=== PATIENT | male | born 1950 | race Caucasian/White ===

== ENCOUNTER 2022-10-21 09:56 | Inpatient (IN) | payer MEDICARE ==
[2022-10-21] MEDS ORDERED: KETOROLAC 15 MG/ML 1 ML VIAL IVP STA (10:13)
[2022-10-21] MEDS ORDERED: FAMOTIDINE 20 MG/2 ML VIAL IV STA (10:13)
--- NOTE | 2022-10-21 10:27 | ED ---
Abdominal Pain HPI - General Chief Complaint: Abdominal Pain Stated Complaint: abd pain Time Seen by Provider: 10/21/22 10:07 Source: patient, RN notes reviewed Mode of arrival: ambulatory Limitations: no limitations - History of Present Illness Initial Comments: This is a 71-year-old male who presents to the emergency department for abdominal pain. States that this the upper abdomen and started about 3 days ago. He has associated nausea and vomiting. States that this has happened to him in the past, however it usually resolves on its own within 1-2 days. However, this pain has since persisted. Additionally, this is the first time that the pain has radiated down to his umbilicus and into the back. Denies any diarrhea or constipation. Denies any known history of gallbladder problems. Unsure if this is related to anything that he ate. Denies any fevers, chills, sore throat, cough, dyspnea, chest pain, palpitations, diarrhea, or headaches. MD Complaint: abdominal pain Onset/Timin -: days(s) Location: epigastric - Related Data Home Medications Medication Instructions Recorded Confirmed Aspirin EC [Ecotrin Low Dose] 81 mg PO DAILY 10/21/22 10/21/22 Atorvastatin [Lipitor] 20 mg PO DAILY 10/21/22 10/21/22 Losartan [Cozaar] 50 mg PO DAILY 10/21/22 10/21/22 Omeprazole 20 mg PO DAILY 10/21/22 10/21/22 hydroCHLOROthiazide [Hydrodiuril] 12.5 mg PO DAILY 10/21/22 10/21/22 Allergies Allergy/AdvReac Type Severity Reaction Status Date / Time amoxicillin Allergy Rash/Hives Verified 10/21/22 13:09 Review of Systems ROS Statement: Those systems with pertinent positive or pertinent negative responses have been documented in the HPI. ROS Other: All systems not noted in ROS Statement are negative. Past Medical History Past Medical History: GERD/Reflux, Hyperlipidemia, Hypertension History of Any Multi-Drug Resistant Organisms: None Reported Past Surgical History: No Surgical Hx Reported Past Psychological History: No Psychological Hx Reported Smoking Status: Never smoker Past Alcohol Use History: Heavy General Exam Limitations: no limitations General appearance: alert, in no apparent distress Head exam: Present: atraumatic, normocephalic, normal inspection Respiratory exam: Present: normal lung sounds bilaterally. Absent: respiratory distress, wheezes, rales, rhonchi, stridor Cardiovascular Exam: Present: regular rate, normal rhythm, normal heart sounds. Absent: systolic murmur, diastolic murmur, rubs, gallop, clicks GI/Abdominal exam: Present: soft, tenderness (epigastric), normal bowel sounds. Absent: distended Neurological exam: Present: alert, oriented X3, CN II-XII intact Psychiatric exam: Present: normal affect, normal mood Skin exam: Present: warm, dry, intact, normal color. Absent: rash Course Vital Signs 10/21/22 09:57 Temperature 98.2 F Pulse Rate 57 L Respiratory 18 Rate Blood Pressure 162/93 O2 Sat by Pulse 98 Oximetry Medical Decision Making - Medical Decision Making This is a 71-year-old male who presents to the emergency department for abdominal pain. Was pt. sent in by a medical professional or institution? @ -No Did you speak to anyone other than the patient for history? @ -No Did you review nursing and triage notes? @ -Yes, and I agree, it is accurate with regards to the patient's symptoms. Were old charts reviewed? @ -No Differential Diagnosis? @ -Differential Abdominal Pain Men: Appendicitis, cholecystitis, diverticulosis, ischemic bowel, pancreatitis, hepatitis, UTI, gastroenteritis, AAA, incarcerated hernia, bowel obstruction, constipation, inflammatory bowel, hepatitis, peptic ulcer disease, splenic infarction, perforated viscus, testicular torsion, this is not meant to be an al l-inclusive list EKG interpreted by me (3pts min.)? @ -EKG interpreted by me demonstrating the following: Sinus bradycardia. Ventricular rate 49 beats per minute, OR interval 156 ms, QRS duration 88 ms, QTC 430 milliseconds. X-rays interpreted by me (1pt min.)? @ -Not obtained CT interpreted by me (1pt min.)? @ -Computed tomography scan of the abdomen and pelvis obtained. My interp retation identifies no evidence of bowel wall thickening or free air. U/S interpreted by me (1pt. min.)? @ -Gallbladder ultrasound obtained. My interpretation identifies no evidence of cholelithiasis. What testing was considered but not performed? (CT, X-rays, U/S, labs)? Why? @ -None What meds were considered but not given? Why? @ -None Did you discuss the management of the patient with other professionals? @ -Yes, Dr. Weiss, who accepts the patient for admission. Did you reconcile home meds? @ -Yes Was smoking cessation discussed for >3mins.? @ -No Was critical care preformed (if so, how long)? @ -No Were there social determinants of health that impacted care today? How? (Homelessness, low income, unemployed, alcoholism, drug addiction, transportation, low edu. Level, literacy, decrease access to med. care, shelter, rehab)? @ -No Was there de-escalation of care discussed even if they declined? (Discuss DNR or withdrawal of care, Hospice)? @ -No What co-morbidities impacted this encounter? (DM, HTN, Smoking, COPD, CAD, Cancer, CVA, Hep., AIDS, mental health diagnosis, sleep apnea, morbid obesity)? @ -GERD, alcoholism Was patient admitted / discharged? @ -Admitted. Lab work obtained revealing leukocytosis and an elevated lipase of 3026 suggestive of pancreatitis. We did try to obtain a gallbladder ultrasound, however examination was fairly limited due to overlying bowel gas. We subsequently obtained a computed tomography scan of the abdomen and pelvis. This revealed findings consistent with acute pancreatitis. Patient does have elevated cholesterol, and a lipid panel was ordered for further evaluation of his triglycerides. This may have also been triggered by the patient's heavy alcohol use. Patient admitted to medicine for pancreatitis. Consult placed for gastroenterology. Undiagnosed new problem with uncertain prognosis? @ -None Drug Therapy requiring intensive monitoring for toxicity (Heparin, Nitro, Insulin, Cardizem)? @ -None Were any procedures done? @ -None Diagnosis/symptom? @ -Acute pancreatitis Acute, or Chronic, or Acute on Chronic? @ -Acute Uncomplicated (without systemic symptoms) or Complicated (systemic symptoms)? @ -Complicated Side effects of treatment? @ -None Exacerbation, Progression, or Severe Exacerbation] @ -Not applicable Poses a threat to life or bodily function? @ -Yes This case was discussed in detail with the attending ED physician, Dr. Tommy lucas. Presentation, findings, and treatment plan discussed in detail as well. - Lab Data Result diagrams: 10/21/22 11:11 10/21/22 11:11 Lab Results 10/21/22 10/21/22 10/21/22 Range/Units 11:11 11:11 11:11 WBC 16.4 H (3.8-10.6) k/uL RBC 4.89 (4.30-5.90) m/uL Hgb 15.2 (13.0-17.5) gm/dL Hct 43.8 (39.0-53.0) % MCV 89.6 (80.0-100.0) fL MCH 31.0 (25.0-35.0) pg MCHC 34.6 (31.0-37.0) g/dL RDW 12.8 (11.5-15.5) % Plt Count 226 (150-450) k/uL MPV 8.5 Neutrophils % 85 % Lymphocytes % 8 % Monocytes % 6 % Eosinophils % 1 % Basophils % 0 % Neutrophils # 13.8 H (1.3-7.7) k/uL Lymphocytes # 1.3 (1.0-4.8) k/uL Monocytes # 1.0 (0-1.0) k/uL Eosinophils # 0.2 (0-0.7) k/uL Basophils # 0.0 (0-0.2) k/uL Sodium 128 L (137-145) mmol/L Potassium 4.0 (3.5-5.1) mmol/L Chloride 94 L (98-107) mmol/L Carbon Dioxide 27 (22-30) mmol/L Anion Gap 7 mmol/L BUN 13 (9-20) mg/dL Creatinine 0.64 L (0.66-1.25) mg/dL Est GFR (CKD-EPI)AfAm >90 (>60 ml/min/1.73 sqM) Est GFR (CKD-EPI)NonAf >90 (>60 ml/min/1.73 sqM) Glucose 116 H (74-99) mg/dL Plasma Lactic Acid Harjinder 1.0 (0.7-2.0) mmol/L Calcium 8.8 (8.4-10.2) mg/dL Total Bilirubin 1.1 (0.2-1.3) mg/dL AST 22 (17-59) U/L ALT 18 (4-49) U/L Alkaline Phosphatase 65 (38-126) U/L Total Protein 6.8 (6.3-8.2) g/dL Albumin 3.8 (3.5-5.0) g/dL Amylase 70 (30-110) U/L Lipase 3026 H (23-300) U/L - Radiology Data Radiology results: report reviewed, image reviewed Disposition Clinical Impression: Pancreatitis Disposition: ADMITTED IP TO THIS [facility] Referrals: Isela Regalado MD [Primary Care Provider] - 1-2 days
--- NOTE | 2022-10-21 11:35 | US ---
EXAMINATION TYPE: US gallbladder DATE OF EXAM: 10/21/2022 COMPARISON: NONE CLINICAL INDICATION: Male, 71 years old with history of Epigastric pain; TECHNIQUE: Multiple sonographic images of the right upper quadrant are obtained. FINDINGS: EXAM MEASUREMENTS: Liver Length: 14.7 cm Gallbladder Wall: 0.1 cm CBD: 0.3 cm Right Kidney: 11.4 x 5.0 x 5.6 cm MATERIALS BUYER NOTES:Suboptimal due to bowel gas Pancreas: Obscured by bowel gas Liver: Limited visualization, scanned through ribs Gallbladder: No prominent stones or wall thickening seen Evidence for sonographic Phoenix's sign: neg CBD: wnl Right Kidney: No hydronephrosis or masses seen Pancreas is obscured by overlying bowel gas. The visualized portions of liver are unremarkable. No ch olelithiasis, wall thickening, or pericholecystic fluid. Per vamp creaser, negative sonographic Phoenix 's sign. Common bile duct is within normal limits. Right kidney is unremarkable without evidence for hydronephrosis, solid mass, or nephrolithiasis. Corticomedullary differentiation appears maintained. IMPRESSION: Limited examination due to overlying bowel gas. No ultrasound evidence for an acute process.
[2022-10-21 11:36] LABS: ALT 18 U/L (4-49); AST 22 U/L (17-59); African American GFR (CKD) >90 (>60 ml/min/1.73 sqM); Albumin 3.8 g/dL (3.5-5.0); Alkaline Phosphatase 65 U/L (38-126); Amylase 70 U/L (30-110); Anion Gap 7 mmol/L; Blood Urea Nitrogen 13 mg/dL (9-20); Calcium 8.8 mg/dL (8.4-10.2); Carbon Dioxide 27 mmol/L (22-30); Chloride 94 mmol/L (98-107); Glucose 116 mg/dL (74-99); Non-African American GFR(CKD) >90 (>60 ml/min/1.73 sqM); Sodium 128 mmol/L (137-145); Total Bilirubin 1.1 mg/dL (0.2-1.3); Total Protein 6.8 g/dL (6.3-8.2)
[2022-10-21 11:50] LABS: Lipase 3026 U/L (23-300)
[2022-10-21 11:52] LABS: Basophils % (A) 0 %; Eosinophils # (A) 0.2 k/uL (0-0.7); Eosinophils % (A) 1 %; HCT 43.8 % (39.0-53.0); HGB 15.2 gm/dL (13.0-17.5); Lymphocytes # (A) 1.3 k/uL (1.0-4.8); Lymphocytes % (A) 8 %; MCHC 34.6 g/dL (31.0-37.0); MCV 89.6 fL (80.0-100.0); Mean Platelet Volume 8.5; Monocytes % (A) 6 %; Neutrophils # (A) 13.8 k/uL (1.3-7.7); Neutrophils % (A) 85 %; Platelet Count 226 k/uL (150-450); RBC 4.89 m/uL (4.30-5.90); RDW 12.8 % (11.5-15.5); WBC 16.4 k/uL (3.8-10.6)
[2022-10-21] MEDS ORDERED: ACETAMINOPHEN TAB 325 MG TAB PO PRN (12:09)
[2022-10-21] MEDS ORDERED: NALOXONE 0.4 MG/ML 1 ML VIAL IV PRN (12:09)
[2022-10-21] MEDS ORDERED: ONDANSETRON 4 MG/2 ML VIAL IVP PRN (12:09)
[2022-10-21] MEDS ORDERED: HYDROmorphone 1 MG/ML 1 ML SYRINGE IVP PRN (12:09)
--- NOTE | 2022-10-21 13:02 | CT ---
EXAMINATION TYPE: CT abdomen pelvis w con CT DLP: 1293.2 mGycm, Automated exposure control for dose reduction was used. DATE OF EXAM: 10/21/2022 12:46 PM COMPARISON: None CLINICAL INDICATION:Male, 71 years old with history of Epigastric pain, pancreatitis; epigastric pain , pancreatitis TECHNIQUE: Axial CT of the abdomen and pelvis. Sagittal and coronal reformats were created on a [employer] workstation. Contrast used:80 mL of Isovue 300 with IV Contrast, (none if empty) Oral contrast used: without Oral Contrast (none if empty) FINDINGS: LOWER CHEST: The heart is mildly enlarged for size. ABDOMEN LIVER: Unremarkable GALLBLADDER AND BILE DUCTS: Unremarkable. PANCREAS: Facet joint changes are seen around the pancreas. No organizing fluid collection. There is fatty infiltration of the pancreas. Pancreatic parenchyma enhances rather uniformly. SPLEEN: Unremarkable. ADRENAL GLANDS: Unremarkable. KIDNEYS AND URETERS: No evidence of hydronephrosis or renal calculus. The ureters are unremarkable. PELVIS BLADDER: Unremarkable REPRODUCTIVE: Prostate is enlarged in size measuring 4.9 cm in transverse dimension. ABDOMEN & PELVIS STOMACH AND BOWEL: No evidence of bowel obstruction. PERITONEUM/RETROPERITONEUM: No evidence of pneumoperitoneum or free fluid. VASCULATURE: No evidence of aortic aneurysm. MUSCULOSKELETAL: No acute osseous abnormalities LYMPH NODES: No gross evidence for lymphadenopathy. SOFT TISSUE/ABDOMINAL WALL: Unremarkable IMPRESSION: Acute pancreatitis. No organizing fluid collection or evidence for consultation at this time. Correla te with serum lipase.
[2022-10-21] MEDS: KETOROLAC 15 MG/ML 1 ML VIAL IVP PRN (13:27)
[2022-10-21] MEDS: SODIUM CHLORIDE 0.9% 1,000 ML IV SCH ×2 (13:27→21:18)
[2022-10-21] MEDS: HYDROmorphone 0.5 MG/0.5 ML SYRINGE IVP PRN ×2 (17:55→22:17)
[2022-10-21 19:50] LABS: Chol/HDL Ratio 2.48 Ratio; LDL Cholesterol,Calculated 74.9 mg/dL (0.0-131.0)
--- NOTE | 2022-10-21 23:15 | P.HPIM ---
History of Present Illness H&P Date: 10/21/22 Chief Complaint: Abdominal pain Patient is a 71-year-old male with a past medical history of hypertension, hyperlipidemia, GERD and daily alcohol use/vodka presents to ER with complaints of abdominal pain mainly in the epigastric region, sharp pain radiating to back and down to his umbilical region. Patient states that his symptoms started about 3 days ago presents with nausea and but unable to vomit. Patient states that he had this pain before but usually resolves in 1 to 2 days but this time is persisted more than 3 days which made him come to ER.. During prior ad mission with pancreatitis. No prior history of gallstones or gallbladder issues. Denies any fever or chills. No chest pain or shortness of breath. Denies any recent illnesse or travel. Laboratory data showed WBC 16.4 hemoglobin 15.2 and platelets 226 Sodium 128 potassium 4.0 chloride 94 bicarb is 27 BUN 13 and creatinine 0.64 and blood sugar is 116 Liver enzymes are not elevated. Bilirubin level is 1.1 Triglycerides 97 and total cholesterol 158 and LDL 74.9 and amylase 70 and lipase level is 3026. EKG showed sinus bradycardia. Gallbladder ultrasound showed no ultrasound evidence for acute process. CBD within normal limits. No prominent stones or wall thickening seen. CT of the abdomen pelvis showed acute pancreatitis. No organizing fluid collection or evidence for consultation at this time. Correlate with serum lipase. Acute pancreatitis. Likely alcohol-related. Patient does have abdominal pain radiating to the back. Daily alcohol use with vodka Leukocytosis 16.4 likely reactive. Rule out infection. Hypovolemic hyponatremia Hypertension Hyperlipidemia. Patient does take atorvastatin at home. GERD DVT prophylaxis with heparin subcu Plan: Patient will be continued on IV hydration with normal saline at 130 cc per hour and continue with pain management with Dilaudid. Patient will be started back on home blood pressure medications and statins. N.p.o. until pain gets better and symptomatic management for nausea. Follow-up closely and repeat CBC and BMP tomorrow. Past Medical History Past Medical History: GERD/Reflux, Hyperlipidemia, Hypertension History of Any Multi-Drug Resistant Organisms: None Reported Past Surgical History: No Surgical Hx Reported Past Psychological History: No Psychological Hx Reported Smoking Status: Never smoker Past Alcohol Use History: Heavy Medications and Allergies Home Medications Medication Instructions Recorded Confirmed Type Aspirin EC [Ecotrin Low Dose] 81 mg PO DAILY 10/21/22 10/21/22 History Atorvastatin [Lipitor] 20 mg PO DAILY 10/21/22 10/21/22 History Losartan [Cozaar] 50 mg PO DAILY 10/21/22 10/21/22 History Omeprazole 20 mg PO DAILY 10/21/22 10/21/22 History hydroCHLOROthiazide [Hydrodiuril] 12.5 mg PO DAILY 10/21/22 10/21/22 History Allergies Allergy/AdvReac Type Severity Reaction Status Date / Time amoxicillin Allergy Rash/Hives Verified 10/21/22 13:09 Physical Exam Vitals: Vital Signs Temp Pulse Pulse Resp BP BP Pulse Ox 10/21/22 15:35 98.3 F 51 L 20 155/81 96 10/21/22 13:25 54 L 18 150/84 97 10/21/22 09:57 98.2 F 57 L 18 162/93 98 Intake and Output 10/21/22 10/21/22 10/21/22 06:59 14:59 22:59 Other: Weight 95.254 kg 95.254 kg Results CBC & Chem 7: 10/21/22 11:11 10/21/22 11:11 Labs: Abnormal Lab Results - Last 24 Hours (Table) 10/21/22 10/21/22 Range/Units 11:11 11:11 WBC 16.4 H (3.8-10.6) k/uL Neutrophils # 13.8 H (1.3-7.7) k/uL Sodium 128 L (137-145) mmol/L Chloride 94 L (98-107) mmol/L Creatinine 0.64 L (0.66-1.25) mg/dL Glucose 116 H (74-99) mg/dL Lipase 3026 H (23-300) U/L Thrombosis Risk Factor Assmnt - DVT/VTE Prophylaxis DVT/VTE Prophylaxis: Pharmacologic Prophylaxis ordered - Choose All That Apply Any of the Below Risk Factors Present?: No Other Risk Factors: Yes Each Risk Factor Represents 2 Points: Age 61-74 years Other congenital or acquired thrombophilia - If yes, enter type in comment: No Thrombosis Risk Factor Assessment Total Risk Factor Score: 2 Thrombosis Risk Factor Assessment Level: Low Risk Assessment and Plan Time with Patient: Greater than 30
[2022-10-22] MEDS: HEPARIN SODIUM,PORCINE 5,000 UNIT/ML 1 ML VIAL SQ SCH ×4 (02:00→20:25)
[2022-10-22] MEDS: HYDROmorphone 0.5 MG/0.5 ML SYRINGE IVP PRN ×2 (02:08→06:08)
[2022-10-22] MEDS: SODIUM CHLORIDE 0.9% 1,000 ML IV SCH ×3 (04:17→20:22)
[2022-10-22] MEDS: PANTOPRAZOLE 40 MG TABLET PO SCH (07:05)
[2022-10-22 07:33] LABS: Basophils % (A) 0 %; Eosinophils # (A) 0.1 k/uL (0-0.7); Eosinophils % (A) 1 %; HCT 40.5 % (39.0-53.0); HGB 13.6 gm/dL (13.0-17.5); Lymphocytes # (A) 0.6 k/uL (1.0-4.8); Lymphocytes % (A) 3 %; MCH 30.6 pg (25.0-35.0); MCHC 33.5 g/dL (31.0-37.0); MCV 91.4 fL (80.0-100.0); Mean Platelet Volume 8.1; Monocytes # (A) 1.1 k/uL (0-1.0); Monocytes % (A) 6 %; Neutrophils # (A) 16.3 k/uL (1.3-7.7); Neutrophils % (A) 90 %; Platelet Count 218 k/uL (150-450); RBC 4.43 m/uL (4.30-5.90); RDW 12.6 % (11.5-15.5); WBC 18.2 k/uL (3.8-10.6)
[2022-10-22 07:54] LABS: African American GFR (CKD) >90 (>60 ml/min/1.73 sqM); Anion Gap 7 mmol/L; Blood Urea Nitrogen 14 mg/dL (9-20); Carbon Dioxide 26 mmol/L (22-30); Chloride 98 mmol/L (98-107); Glucose 112 mg/dL (74-99); Lipase 1057 U/L (23-300); Non-African American GFR(CKD) 90 (>60 ml/min/1.73 sqM); Sodium 131 mmol/L (137-145)
[2022-10-22] MEDS: KETOROLAC 15 MG/ML 1 ML VIAL IVP PRN ×2 (09:57→18:54)
[2022-10-22] MEDS: LOSARTAN 50 MG TAB PO SCH (09:58)
[2022-10-22] MEDS: ATORVASTATIN 20 MG TAB PO SCH (09:58)
[2022-10-22] MEDS: ASPIRIN 81 MG PO SCH (09:58)
--- NOTE | 2022-10-22 10:02 | P.CONS ---
History of Present Illness - Reason for Consult Consult date: 10/22/22 Pancreatitis Requesting physician: Sheila Flores - Chief Complaint Abdominal pain - History of Present Illness The cine pleasant 71-year-old male who presented to the emergency department with complaints of abdominal pain. States pain started on Thursday and was associated with vomiting. A progressively had gotten worse he came in for further evaluation. Patient had elevated lipase and [address] of the abdomen and pelvis also showed acute uncomplicated pancreatitis. Patient states he has had pain like this in the past however never this severe and never required hospitalization. He does admit to regular alcohol use states he drinks at least 2 drinks 4 days a week however had some heavy alcohol consumption over the weekend. He currently denies any nausea or vomiting. He is tolerating clear liquid diet. Labs WBC 18.2 hemoglobin 13.6 hematocrit 40 platelet count 218,000 sodium 131 potassium 4.0 BUN 14 creatinine 0.8 total bilirubin 1.1 AST 22 AST 18 alkaline phosphatase 65 triglycerides 97 lipase 1057 Review of Systems REVIEW OF SYSTEMS: CARDIOPULMONARY: No chest pain or shortness of breath. Gastrointestinal: Right upper quadrant and epigastric pain. No nausea or vomiting. No hematemesis, coffee-ground emesis. No rectal bleeding, or melena. GENITOURINARY: No dysuria or hematuria. MUSCULOSKELETAL: Reports normal range of motion. SKIN: No rashes. No jaundice. ENDOCRINE: No chills, fevers. No excessive weight gain or loss. No polydipsia or polyuria. PSYCHIATRIC: Unremarkable. NEUROLOGY: No change in mental status. Denies dizziness, headache. ENT: Vision unremarkable. CONSTITUTIONAL: No recent weight loss. No fever, chills, night sweats. Past Medical History Past Medical History: GERD/Reflux, Hyperlipidemia, Hypertension History of Any Multi-Drug Resistant Organisms: None Reported Past Surgical History: No Surgical Hx Reported Past Psychological History: No Psychological Hx Reported Smoking Status: Never smoker Past Alcohol Use History: Heavy Medications and Allergies Home Medications Medication Instructions Recorded Confirmed Type Aspirin EC [Ecotrin Low Dose] 81 mg PO DAILY 10/21/22 10/21/22 History Atorvastatin [Lipitor] 20 mg PO DAILY 10/21/22 10/21/22 History Losartan [Cozaar] 50 mg PO DAILY 10/21/22 10/21/22 History Omeprazole 20 mg PO DAILY 10/21/22 10/21/22 History hydroCHLOROthiazide [Hydrodiuril] 12.5 mg PO DAILY 10/21/22 10/21/22 History Allergies Allergy/AdvReac Type Severity Reaction Status Date / Time amoxicillin Allergy Rash/Hives Verified 10/21/22 13:09 Physical Exam Vitals: Vital Signs Temp Pulse Pulse Resp BP BP Pulse Ox 10/22/22 01:12 99.3 F 63 169/90 97 10/21/22 20:00 98.8 F 61 18 152/76 94 L 10/21/22 15:35 98.3 F 51 L 20 155/81 96 10/21/22 13:25 54 L 18 150/84 97 10/21/22 09:57 98.2 F 57 L 18 162/93 98 Intake and Output 10/21/22 10/22/22 10/22/22 22:59 06:59 14:59 Other: Voiding Method Toilet Toilet # Voids 1 Weight 95.254 kg General appearance: The patient is alert, oriented, appears in no acute distress. HET: Head is normocephalic and atraumatic. Conjunctiva pink. Sclera anicteric. Neck: Supple without lymphadenopathy. Trachea midline. Heart: S1 S2. Regular rate and rhythm. Lungs: Clear to auscultation. Abdomen: Soft, minimal epigastric/ right upper quadrant tenderness, nondistended with bowel sounds. No guarding or rigidity. Skin: No rashes. No jaundice. Extremities: Normal skin color and turgor. No pedal edema. Neurological: No focal deficits. Alert and oriented x3. Results CBC & Chem 7: 10/22/22 06:34 10/22/22 06:34 Labs: Abnormal Lab Results - Last 24 Hours (Table) 10/21/22 10/21/22 10/21/22 Range/Units 11:11 11:11 15:20 WBC 16.4 H (3.8-10.6) k/uL Neutrophils # 13.8 H (1.3-7.7) k/uL Lymphocytes # (1.0-4.8) k/uL Monocytes # (0-1.0) k/uL Sodium 128 L (137-145) mmol/L Chloride 94 L (98-107) mmol/L Creatinine 0.64 L (0.66-1.25) mg/dL Glucose 116 H (74-99) mg/dL Calcium (8.4-10.2) mg/dL HDL Cholesterol 63.70 H (40.00-60.00) mg/dL Lipase 3026 H (23-300) U/L 10/22/22 10/22/22 Range/Units 06:34 06:34 WBC 18.2 H (3.8-10.6) k/uL Neutrophils # 16.3 H (1.3-7.7) k/uL Lymphocytes # 0.6 L (1.0-4.8) k/uL Monocytes # 1.1 H (0-1.0) k/uL Sodium 131 L (137-145) mmol/L Chloride (98-107) mmol/L Creatinine (0.66-1.25) mg/dL Glucose 112 H (74-99) mg/dL Calcium 8.0 L (8.4-10.2) mg/dL HDL Cholesterol (40.00-60.00) mg/dL Lipase 1057 H (23-300) U/L CT scan - abdomen: report reviewed (Acute pancreatitis. No organizing fluid collection or evidence for consultation at this time. Correlate with serum lipase) US - abdomen: report reviewed (Limited examination due to overlying bowel gas. No ultrasound evidence for an acute process.) Assessment and Plan (1) Acute pancreatitis Narrative/Plan: 71-year-old male reporting to the hospital with severe epigastric/right upper quadrant abdominal pain associated with nausea and vomiting on Thursday. Patichuck pham has had previous episodes of similar pain but never this intense, and never brought him to the hospital. Patient does admit to regular alcohol use and admits to drinking quite heavily over the weekend. Likely were dealing with acute alcoholic pancreatitis. CT abdomen and pelvis shows an acute u ncomplicated pancreatitis, lipase elevated which is consistent with pancreatitis. No LFT elevation. Continue with symptomatic and supportive care. Can advance to low-fat diet. Current Visit: Yes Status: Acute Code(s): K85.90 - ACUTE PANCREATITIS WITHOUT NECROSIS OR INFECTION, UNSP SNOMED Code(s): 376221518 Plan: 1. Continue symptomatic and supportive care 2. Continue aggressive hydration 3. Continue pain medication as needed 4. Continue antiemetics as needed 5. Advance diet as tolerated to a low-fat diet 6. No further workup indicated 7. Discussed with patient importance of alcohol abstinence 8. Anticipate discharge in the next 24 hours Thank you for this consultation, we will continue to follow. Dr. Cristina Astudillo I agree with the dictator's note, documented as a scribe by Maricruz Esparza.
[2022-10-22] MEDS: hydroCHLOROthiazide 12.5 MG CAP PO SCH (10:17)
[2022-10-22] MEDS ORDERED: HYDROmorphone 0.5 MG/0.5 ML SYRINGE IVP PRN (13:01)
[2022-10-22] MEDS: HYDROcodone/APAP 5-325MG 1 EACH TAB PO PRN ×2 (14:39→20:27)
[2022-10-23] MEDS: SODIUM CHLORIDE 0.9% 1,000 ML IV SCH ×2 (00:15→09:00)
[2022-10-23] MEDS: KETOROLAC 15 MG/ML 1 ML VIAL IVP PRN (00:15)
--- NOTE | 2022-10-23 05:29 | P.PN ---
Subjective Progress Note Date: 10/22/22 Patient is a 71-year-old male with a past medical history of hypertension, hyperlipidemia, GERD and daily alcohol use/vodka presents to ER with complaints of abdominal pain mainly in the epigastric region, sharp pain radiating to back and down to his umbilical region. Patient states that his symptoms started about 3 days ago presents with nausea and but unable to vomit. Patient states that he had this pain before but usually resolves in 1 to 2 days but this time is persisted more than 3 days which made him come to ER.. During prior admission with pancreatitis. No prior history of gallstones or gallbladder issues. Denies any fever or chills. No chest pain or shortness of breath. Denies any recent illnesse or travel. Laboratory data showed WBC 16.4 hemoglobin 15.2 and platelets 226 Sodium 128 potassium 4.0 chloride 94 bicarb is 27 BUN 13 and creatinine 0.64 and blood sugar is 116 Liver enzymes are not elevated. Bilirubin level is 1.1 Triglycerides 97 and total cholesterol 158 and LDL 74.9 and amylase 70 and lipase level is 3026. EKG showed sinus bradycardia. Gallbladder ultrasound showed no ultrasound evidence for acute process. CBD within normal limits. No prominent stones or wall thickening seen. CT of the abdomen pelvis showed acute pancreatitis. No organizing fluid colle ction or evidence for consultation at this time. Correlate with serum lipase. 10/22/2022 Patient seen and evaluated in follow-up today with GI following maintained on IV hydration. There is improvement in lipase and is trending down although patient continues to have some abdominal pain and not much of an appetite. patient is continued on clear liquids and will continue for now possible advancing diet in the a.m. feeling better. Patient encouraged to increase activity as tolerated and limited IV narcotic use if possible. Patient does have poor at all and [place] was added. Patient is afebrile denies chest pain or shortness of breath. Patient reports drinks frequently sometimes daily a couple of beers and denies any symptoms of having withdrawals. Review of systems: Constitutional: No reports of fatigue, fever, or chills Cardiovascular: No reports of chest pain or palpitations Respiratory: No reports of shortness of breath or cough GI: No reports of nausea, vomiting, or diarrhea, reports abdominal discomfort : No reports of dysuria or retention Neurovascular: No reports of weakness or numbness All medications have been reviewed Physical exam: Gen: This is a 71-year-old male who is awake, alert and oriented 3, well- developed, well-nourished, obese HEENT: Head is atraumatic, normocephalic. Pupils equal, round. Sclerae is anicteric. NECK: Supple. No JVD. No lymphadenopathy. No thyromegaly. LUNGS: Clear to auscultation. No wheezes or rhonchi. No intercostal retractions. HEART: Regular rate and rhythm. No murmur. ABDOMEN: Soft. Obese, mildly tender on palpation Bowel sounds are present. No masses. EXTREMITIES: No pedal edema. No calf tenderness. NEUROLOGICAL: Patient is awake, alert and oriented x3. Cranial nerves 2 through 12 are grossly intact. Assessment: Acute pancreatitis. Likely alcohol-related. Patient does have abdominal pain radiating to the back. Daily alcohol use with vodka Leukocytosis 16.4 likely reactive. Ruled out infection. Hypovolemic hyponatremia Hypertension Hyperlipidemia. Patient does take atorvastatin at home. GERD DVT prophylaxis with heparin subcu GI prophylaxis Full code Plan: Patient will be continued on IV hydration with normal saline. Patient does have Dilaudid and will use is needed only for severe pain. Encourage the patient to continue with IV Toradol and [place] was admitted Encouraged to increase activity as tolerated Patient to continue on clear liquids showing improvements abdominal pain possible full liquids in a.m. GI following for pancreatitis and there is some elevation in lipase although trending down today and will follow-up with repeat in a.m. Monitor overnight for improvements in abdominal pain with possible discharge in 24 hours The impression and plan of care has been dictated by Rima Del Rosario, Prac titioner as directed. Dr. Tate MD I have performed a history and examination and MDM of this patient, discussed the same with the dictator, and agree with the dictator's assessment and plan as written ,documented as a scribe. Based on total visit time, I have performed more than 50% of the visit. Objective - Vital Signs Vital signs: Vital Signs Temp 99.1 F 10/22/22 09:55 Pulse 73 10/22/22 09:55 Resp 18 10/22/22 09:55 BP 153/79 10/22/22 09:55 Pulse Ox 97 10/22/22 09:55 FiO2 Intake & Output 10/21/22 10/22/22 10/22/22 18:59 06:59 18:59 Weight 95.254 kg Other: Voiding Method Toilet # Voids 1 - Labs CBC & Chem 7: 10/22/22 06:34 10/22/22 06:34 Labs: Abnormal Lab Results - Last 24 Hours (Table) 10/21/22 10/21/22 10/21/22 Range/Units 11:11 11:11 15:20 WBC 16.4 H (3.8-10.6) k/uL Neutrophils # 13.8 H (1.3-7.7) k/uL Lymphocytes # (1.0-4.8) k/uL Monocytes # (0-1.0) k/uL Sodium 128 L (137-145) mmol/L Chloride 94 L (98-107) mmol/L Creatinine 0.64 L (0.66-1.25) mg/dL Glucose 116 H (74-99) mg/dL Calcium (8.4-10.2) mg/dL HDL Cholesterol 63.70 H (40.00-60.00) mg/dL Lipase 3026 H (23-300) U/L 10/22/22 10/22/22 Range/Units 06:34 06:34 WBC 18.2 H (3.8-10.6) k/uL Neutrophils # 16.3 H (1.3-7.7) k/uL Lymphocytes # 0.6 L (1.0-4.8) k/uL Monocytes # 1.1 H (0-1.0) k/uL Sodium 131 L (137-145) mmol/L Chloride (98-107) mmol/L Creatinine (0.66-1.25) mg/dL Glucose 112 H (74-99) mg/dL Calcium 8.0 L (8.4-10.2) mg/dL HDL Cholesterol (40.00-60.00) mg/dL Lipase 1057 H (23-300) U/L
[2022-10-23] MEDS: HYDROcodone/APAP 5-325MG 1 EACH TAB PO PRN ×2 (05:39→12:49)
[2022-10-23] MEDS: PANTOPRAZOLE 40 MG TABLET PO SCH (06:26)
[2022-10-23] MEDS: hydroCHLOROthiazide 12.5 MG CAP PO SCH (08:58)
[2022-10-23] MEDS: ATORVASTATIN 20 MG TAB PO SCH (08:58)
[2022-10-23] MEDS: ASPIRIN 81 MG PO SCH (08:58)
[2022-10-23] MEDS: LOSARTAN 50 MG TAB PO SCH (08:59)
[2022-10-23] MEDS: HEPARIN SODIUM,PORCINE 5,000 UNIT/ML 1 ML VIAL SQ SCH ×2 (09:00→16:01)
[2022-10-23 10:58] LABS: HCT 36.9 % (39.6-50.0); HGB 12.1 d/dL (13.0-17.0); MCH 30.2 pg (27.0-32.0); MCHC 32.8 d/dL (32.0-37.0); Mean Platelet Volume 10.7 FL (9.5-12.2); NRBC Per 100 WBC 0 X 10*3/uL (0.00-0.01); Platelet Count 217 X 10*3/uL (140-440); RBC 4.01 X 10*6/uL (4.40-5.60); RDW 12.6 % (11.5-14.5); WBC 18.95 X 10*3/uL (4.50-10.00)
[2022-10-23 11:12] LABS: ALT 12 U/L (10-49); AST 14 U/L (14-35); Albumin 3.1 d/dL (3.8-4.9); Albumin/Globulin Ratio 1.48 Ratio (1.60-3.17); Alkaline Phosphatase 66 U/L (41-126); BUN/Creat Ratio 16.62 Ratio (12.00-20.00); Blood Urea Nitrogen 13.3 mg/dL (9.0-27.0); Calcium 8.2 mg/dL (8.7-10.3); Carbon Dioxide 26.5 mmol/L (21.6-31.8); Chloride 100 mmol/L (96-109); Globulin 2.1 d/dL (1.6-3.3); Glucose 105 mg/dL (70-110); Lipase 49 U/L (14-60); Sodium 135 mmol/L (135-145); Total Bilirubin 0.7 mg/dL (0.3-1.2); Total Protein 5.2 d/dL (6.2-8.2)
[2022-10-23 11:31] LABS: Basophils # (A) 0.04 X 10*3/uL (0.00-0.10); Basophils % (A) 0.2 %; Eosinophils # (A) 0.18 X 10*3/uL (0.04-0.35); Eosinophils % (A) 0.9 %; Lymphocytes % (A) 4.2 %; Monocytes # (A) 1.61 X 10*3/uL (0.20-1.00); Monocytes % (A) 8.5 %; Neutrophils # (A) 16.24 X 10*3/uL (1.80-7.70); Neutrophils % (A) 85.8 %
[2022-10-23 14:09] VITALS: BP 150/71; PULSE 62; RESP 18; TEMP 98.8
--- NOTE | 2022-10-23 15:12 | P.PN ---
Subjective Progress Note Date: 10/23/22 Principal diagnosis: Pancreatitis This is a pleasant 71-year-old male who presented to the emergency department with complaints of abdominal pain. States pain started on Thursday and was associated with vomiting. A progressively had gotten worse he came in for further evaluation. Patient had elevated lipase and [address] with [address] of the abdomen and pelvis also showed acute uncomplicated pancreatitis. Patient states he has had pain like this in the past however never this severe and never required hospitalization. He does admit to regular alcohol use states he drinks at least 2 drinks 4 days a week however had some heavy alcohol consumption over the weekend. He currently denies any nausea or vomiting. He is tolerating clear liquid diet. Labs WBC 18.2 hemoglobin 13.6 hematocrit 40 platelet count 218,000 sodium 131 potassium 4.0 BUN 14 creatinine 0.8 total bilirubin 1.1 AST 22 AST 18 alkaline phosphatase 65 triglycerides 97 lipase 1057 10/23/2022 Patient seen and examined today as a follow-up. Abdominal pain significantly improved. He has been tolerating full liquid diet. Had oatmeal this morning. LFTs are normal. Repeat lipase 49. Objective - Vital Signs Vital signs: Vital Signs Temp 98.9 F 10/23/22 07:00 Pulse 69 10/23/22 07:00 Resp 17 10/23/22 07:00 BP 125/72 10/23/22 07:00 Pulse Ox 96 10/23/22 07:00 FiO2 Intake & Output 10/22/22 10/23/22 10/23/22 18:59 06:59 18:59 Intake Total 910 480 Balance 910 480 Intake: Intake, IV Titration 910 Amount Sodium Chloride 0.9% 1, 910 000 ml @ 130 mls/hr IV . [id number] [facility] Rx#:[id number] Oral 480 Other: Voiding Method Toilet Toilet # Voids 2 1 - Exam General appearance: The patient is alert, oriented, appears in no acute distress. HET: Head is normocephalic and atraumatic. Conjunctiva pink. Sclera anicteric. Neck: Supple without lymphadenopathy. Abdomen: Soft, nontender, nondistended with bowel sounds. No guarding or rigidity. Extremities: Normal skin color and turgor. No pedal edema Skin: No rashes, no jaundice Neurological: No focal deficits. Alert and oriented. - Labs CBC & Chem 7: 10/23/22 06:52 10/23/22 06:52 Assessment and Plan (1) Acute pancreatitis Narrative/Plan: 71-year-old male reporting to the hospital with severe epigastric/right upper quadrant abdominal pain associated with nausea and vomiting on Thursday. Patient has had previous episodes of similar pain but never this intense, and never brought him to the hospital. Patient does admit to regular alcohol use and admits to drinking quite heavily over the weekend. Likely were dealing with acute alcoholic pancreatitis. CT abdomen and pelvis shows an acute uncomplicated pancreatitis, lipase elevated which is consistent with pancreatitis. No LFT elevation. Continue with symptomatic and supportive care. Can advance to low-fat diet. Current Visit: Yes Status: Acute Code(s): K85.90 - ACUTE PANCREATITIS WITHOU T NECROSIS OR INFECTION, UNSP SNOMED Code(s): 474094608 Plan: 1. Continue symptomatic and supportive care 2. Advance to low-fat diet 3. Continue pain medication as needed 4. Continue antiemetics as needed 5. Discuss with patient eats small meals, continue low-fat diet at home 6. No further workup indicated 7. Discussed with patient importance of alcohol abstinence Thank you for this consultation, patient is cleared from gastroenterology for discharge. Dr. Cristina Astudillo I agree with the dictator's note, documented as a scribe by Maricruz Esparza.
== END 2022-10-23 16:57 | disposition home or self-care (01) | DRG 439 ==
LOC: EC 09:56 → 5NMEDONC 12:23 → 1SOBS 14:51 → 4SSUR 10-22 16:17
PROVIDERS: ADMIT Internal Medicine; ATTEND Internal Medicine
DX: K85.20 Alcohol induced acute pancreatitis without necrosis or infection (principal); E87.1 Hypo-osmolality and hyponatremia; F10.288 Alcohol dependence with other alcohol-induced disorder; E78.5 Hyperlipidemia, unspecified; F10.20 Alcohol dependence, uncomplicated; R11.2 Nausea with vomiting, unspecified; E86.1 Hypovolemia; I10 Essential (primary) hypertension; K21.9 Gastro-esophageal reflux disease without esophagitis; Z79.82 Long term (current) use of aspirin; Z79.899 Other long term (current) drug therapy; Z88.1 Allergy status to other antibiotic agents
CPT/HCPCS: 36415; 74177; 76705; 80048; 80053; 80061; 82150; 83605; 83690; 83735; 85025; 93005; 96361; 96374; 96375; 99285

== ENCOUNTER → 2024-03-14 | Outpatient (CLI) | payer MEDICARE ==
--- NOTE | 2024-03-14 10:20 | XR ---
EXAMINATION TYPE: XR foot complete RT DATE OF EXAM: 03/14/2024 10:10 AM COMPARISON: None. CLINICAL INDICATION: Male, 73 years old with history of [id number] SCIATIC PAIN,RT FOOT PAIN, pain TECHNIQUE: Frontal, lateral, and oblique images of the right foot are obtained. FINDINGS: There is no acute fracture/dislocation evident in the right foot. Mild narrowing and spurr ing first metatarsophalangeal joint. The Pizarro's toe is seen. Accessory ossicle near the medial bas e of navicular bone is noted. The overlying soft tissue appears unremarkable. IMPRESSION: As above. [facility], , 03/14/2024 10:18 AM
--- NOTE | 2024-03-14 10:22 | XR ---
EXAMINATION TYPE: XR lumbosacral spine min 4V DATE OF EXAM: 03/14/2024 10:10 AM COMPARISON: Prior CT abdomen and pelvis October 21, 2022 CLINICAL INDICATION: Male, 73 years old with history of [id number] SCIATIC PAIN,RT FOOT PAIN, pain TECHNIQUE: Frontal, lateral, and bilateral oblique images of the lumbar spine are obtained. FINDINGS: There are 5 lumbar type vertebral bodies redemonstrated. Persistent bilateral pars defects with grade 1 anterolisthesis of L5 on S1. [id number] disc space narrowing L5-S1 level is seen. There is mild disc space narrowing with mild/moderate anterior spurring at L1-L2 level. Vertebral velma dy heights are maintained. Overlying soft tissues are unremarkable. IMPRESSION: As above. [facility], , 03/14/2024 10:20 AM
== END | disposition home or self-care (01) ==
LOC: RADXRYALE 09:31
PROVIDERS: ATTEND Internal Medicine
DX: M54.30 Sciatica, unspecified side (principal); M79.671 Pain in right foot
CPT/HCPCS: 72110